=== PATIENT | female | born 2000 | race African-American/Black ===

== ENCOUNTER 2023-03-23 15:31 | Emergency (ER) | payer OTHER ==
[~2023-03-23] VITALS: Ht 165.1 cm; Wt 88.0 kg
[2023-03-23] MEDS ORDERED: CYCLOBENZAPRINE 10MG TABLET PO ONE (19:25)
[2023-03-23] MEDS ORDERED: KETOROLAC 30 MG/ML 1ML VIAL IV ONE (19:25)
[2023-03-23] MEDS ORDERED: NS 1,000 ML IV ONE (19:25)
[2023-03-23] MEDS ORDERED: ONDANSETRON 4MG 2ML VIAL IV ONE (19:25)
[2023-03-23 19:53] LABS: BASO % 0.3 % (0.0-1.0); EOS % 0.5 % (0.0-3.0); LYMPH % 45.2 % (24.0-44.0); MEAN CORPUSCULAR HEMOGLOBIN 30.1 pg (27.0-33.0); MEAN CORPUSCULAR HGB CONC 33.3 g/dl (32.0-36.5); MEAN CORPUSCULAR VOLUME 90.2 fl (80.0-96.0); MONO # 0.7 10^3/uL (0.0-0.8); NEUTROPHILS % 45.8 % (36.0-66.0); PLATELET COUNT, AUTOMATED 199 10^3/uL (150-450); RED BLOOD COUNT 3.99 10^6/uL (4.00-5.40); WHITE BLOOD COUNT 8.8 10^3/uL (4.0-10.0)
[2023-03-23 20:11] LABS: ERYTHROCYTE SEDIMENTATION RATE 11 mm/hr (0-20)
[2023-03-23 20:18] LABS: ALKALINE PHOSPHATASE 96 U/L (46-116); ALT/SGPT 18 U/L (7.0-40); AST/SGOT 19 U/L (<34); BILIRUBIN,DIRECT 0.1 MG/DL (<0.4); BILIRUBIN,TOTAL 0.4 MG/DL (0.3-1.2); BLOOD UREA NITROGEN 13 MG/DL (9-23); CALCIUM LEVEL 9.4 MG/DL (8.5-10.1); CARBON DIOXIDE LEVEL 26 MMOL/L (20-31); CHLORIDE LEVEL 105 MMOL/L (98-107); CREATININE FOR GFR 1.01 MG/DL (0.55-1.30); GLOMERULAR FILTRATION RATE > 60.0 (>60); GLUCOSE, FASTING 82 MG/DL (60-100); SODIUM LEVEL 138 MMOL/L (136-145); THYROID STIMULATING HORMONE 4.528 uIU/ML (0.55-4.78); TOTAL PROTEIN 7.4 G/DL (5.7-8.2)
[2023-03-23 20:40] LABS: RSV AMPLIFICATION NEGATIVE (NEGATIVE)
[2023-03-23 21:09] LABS: HCG, SERUM QUALITATIVE NEGATIVE (NEGATIVE)
[2023-03-23 22:10] LABS: C REACTIVE PROTEIN QUANTITATIV < 0.40 MG/DL (<1.0); MAGNESIUM LEVEL 1.7 MG/DL (1.8-2.4)
[2023-03-23 22:41] VITALS: BP 113/71; TEMP 97.2; O2SAT 99
== END 2023-03-23 22:53 | disposition home or self-care (01) ==
LOC: M ED 15:31
DX: R51.9 Headache, unspecified (principal); H53.8 Other visual disturbances; M54.2 Cervicalgia
CPT/HCPCS: 70450; 72125; 80048; 80076; 83605; 83735; 84439; 84443; 84702; 84703; 85025; 85652; 86140; 87040; 87631; 96374; 99284; J1885; J2405